=== PATIENT | male | born 1970 | race African-American/Black ===

== ENCOUNTER 2017-09-28 10:09 | Inpatient (IN) | payer MEDICAID ==
[~2017-09-28] VITALS: Ht 182.9 cm; Wt 94.8 kg
[2017-09-28] MEDS ORDERED: METHYLPREDNISOLONE SOD SUCC 125 MG/2 ML VIAL IV STA (10:16)
[2017-09-28] MEDS ORDERED: IPRATROPIUM/ALBUTEROL 0.5-3(2.5)MG/3ML NEB ONE (10:22)
[2017-09-28] MEDS ORDERED: IPRATROPIUM/ALBUTEROL 0.5-3(2.5)MG/3ML NEB HHN ONE (10:30)
[2017-09-28] MEDS ORDERED: MAGNESIUM 2 G PREMIX 50 ML IV ONE (10:30)
[2017-09-28] MEDS ORDERED: LEVOFLOXACIN 750MG PREMIX 150 ML IV ONE (10:30)
[2017-09-28 10:41] LABS: HEMATOCRIT. 40.9 % (42.0-52.0); HEMOGLOBIN. 12.9 g/dL (14.0-18.0); MEAN CORPUSCULAR HEMOGLOBIN 23.4 pg (28.0-32.0); MEAN CORPUSCULAR VOLUME 74.2 fL (80.0-94.0); MEAN PLATELET VOLUME 10.4 fl (7.4-10.4); PLATELET 104 x1000/uL (130-400); RED BLOOD CELL COUNT 5.52 mill/uL (4.7-6.1); RED CELL DISTRIBUTION WIDTH 17.2 % (11.6-14.6)
[2017-09-28 10:53] LABS: CLARITY URINE CLEAR (CLEAR); COLOR URINE YELLOW (YELLOW); KETONES URINE NEGATIVE (NEGATIVE); LEUKOCYTE ESTERASE URINE NEGATIVE (NEGATIVE); NITRITE URINE NEGATIVE (NEGATIVE); OCCULT BLOOD URINE NEGATIVE (NEGATIVE); PH URINE 5.5 (4.5-8.0); PROTEIN URINE 3+ (NEGATIVE); SPECIFIC GRAVITY URINE 1.015 (1.005-1.030); UROBILINOGEN URINE 0.2 E.U./dL (0.2-1.0)
[2017-09-28 10:59] LABS: CARBON DIOXIDE 23 mEq/L (21-32); CHLORIDE 110 mEq/L (98-107); CREATINE KINASE 70 IU/L (39-308); TROPONIN I 0.09 ng/mL (0.00-0.04)
[2017-09-28 11:03] LABS: D-DIMER 1.55 mg/L FEU (<0.50); PARTIAL THROMBOPLASTIN TIME 27.6 sec (23.4-31.0); PROTHROMBIN TIME 10.7 sec (9.4-11.6)
[2017-09-28 11:06] LABS: BG BASE EXCESS -4.8 mmol/L (-2.0-2.0); BG BILEVEL POS AIRWAY PRESSURE 15/5; BG CARBOXYHEMOGLOBIN 0.9 % (0.5-1.5); BG DEOXYHEMOGLOBIN 0.7 % (0.0-5.0); BG FRACTION INSPIRED OXYGEN 50; BG HCO3 ACT 21.3 mmol/L (22.0-26.0); BG METHEMOGLOBIN 0.1 % (0.0-1.5); BG OXYGEN SATURATION 99.3 % (92.0-98.5); BG OXYHEMOGLOBIN 98.3 % (94.0-97.0); BG PCO2 43.1 mmHg (35.0-45.0); BG PH 7.312 (7.350-7.450); BG PO2 216.3 mmHg (75.0-100.0); BG SAMPLE SITE RIGHT RADIAL; BG TOTAL HEMOGLOBIN 13.7 g/dL (12.0-18.0); BG VENT MODE MASK - BIPAP; BG VENT RATE 20 set
[2017-09-28 11:19] LABS: PLATELET ESTIMATE SLIGHTLY DECREASED
[2017-09-28 11:33] LABS: *AMPHETAMINES SCREEN URINE NEGATIVE (NEGATIVE); *BARBITURATES SCREEN URINE NEGATIVE (NEGATIVE); *BENZODIAZEPINES SCREEN URINE NEGATIVE (NEGATIVE); *COCAINE SCREEN URINE PRESUMTIVE POSITIVE (NEGATIVE); CANNABINOID URINE SCREEN NEGATIVE (NEGATIVE); METHADONE URINE SCREEN NEGATIVE (NEGATIVE); OPIATES URINE SCREEN NEGATIVE (NEGATIVE); PHENCYCLIDINE URINE SCREEN NEGATIVE (NEGATIVE)
[2017-09-28] MEDS ORDERED: NITROGLYCERIN 0.4MG TABLET SL SL PRN (12:00)
[2017-09-28] MEDS ORDERED: DIPHENHYDRAMINE 50MG/ML VIAL IV PRN (12:00)
[2017-09-28] MEDS ORDERED: IPRATROPIUM/ALBUTEROL 0.5-3(2.5)MG/3ML NEB INH PRN (12:00)
[2017-09-28] MEDS ORDERED: ACETAMINOPHEN 325MG TABLET PO PRN (12:00)
[2017-09-28] MEDS ORDERED: GUAIFENESIN 200MG/10ML SUGAR FREE UDC PO PRN (12:00)
[2017-09-28] MEDS ORDERED: ONDANSETRON HCL 4MG/2ML VIAL IV PRN (12:00)
[2017-09-28] MEDS ORDERED: LORAZEPAM 0.5MG TABLET PO PRN (12:00)
[2017-09-28] MEDS ORDERED: MAGNESIUM/ALUMINUM HYDROXIDE/SIMETHICONE 30ML UDC PO PRN (12:00)
[2017-09-28] MEDS ORDERED: IPRATROPIUM/ALBUTEROL 0.5-3(2.5)MG/3ML NEB HHN PRN (13:00)
[2017-09-28] MEDS: CLONIDINE 0.1MG TABLET PO PRN ×2 (15:09→21:08)
[2017-09-28 16:02] LABS: CREATINE KINASE MB FRACTION 5.9 ng/mL (0.5-3.6); TROPONIN I 0.11 ng/mL (0.00-0.04)
[2017-09-28 20:05] VITALS: BP 198/112
[2017-09-28 20:42] VITALS: BP 197/148
[2017-09-28] MEDS ORDERED: ZOLPIDEM TARTRATE 5MG TABLET PO PRN (21:00)
[2017-09-28] MEDS ORDERED: FAMOTIDINE 20MG/2ML VIAL IV SCH (21:00)
[2017-09-28] MEDS: DOCUSATE SODIUM 100MG CAPSULE PO PRN (21:08)
[2017-09-28 22:00] VITALS: BP 183/111
[2017-09-28] MEDS: GUAIFENESIN/DM 600MG/30MG ER TAB 12HR PO SCH (22:57)
[2017-09-28] MEDS: ENOXAPARIN 40MG/0.4ML SYR SUBCUT SCH (22:58)
[2017-09-28] MEDS: FAMOTIDINE 20MG/2ML VIAL IV SCH (22:58)
[2017-09-28] MEDS: METHYLPREDNISOLONE SOD SUCC 125 MG/2 ML VIAL IV SCH (22:59)
[2017-09-28 23:00] VITALS: BP 183/95
[2017-09-28] MEDS: CEFTRIAXONE 1,000 MG in DEXTROSE 5% WATER 50 ML IV SCH (23:20)
[2017-09-28] MEDS: HYDRALAZINE HCL 50MG TABLET PO SCH (23:22)
[2017-09-29] VITALS (13 sets, daily range): BP systolic 103–182; BP diastolic 43–115
[2017-09-29 00:28] LABS: CREATINE KINASE MB FRACTION 4.4 ng/mL (0.5-3.6); TROPONIN I 0.05 ng/mL (0.00-0.04)
[2017-09-29] MEDS: DOXAZOSIN MESYLATE 2MG TABLET PO SCH ×2 (00:47→22:52)
[2017-09-29] MEDS: CLONIDINE 0.2MG TABLET PO PRN ×2 (02:11→08:17)
[2017-09-29] MEDS: TRAMADOL 50MG TABLET PO PRN (02:12)
[2017-09-29] MEDS: IPRATROPIUM/ALBUTEROL 0.5-3(2.5)MG/3ML NEB HHN SCH ×5 (04:49→20:01)
[2017-09-29] MEDS: METHYLPREDNISOLONE SOD SUCC 125 MG/2 ML VIAL IV SCH (05:36)
[2017-09-29] MEDS: HYDRALAZINE HCL 50MG TABLET PO SCH ×3 (05:42→22:54)
[2017-09-29 07:17] LABS: BG BASE EXCESS -3.7 mmol/L (-2.0-2.0); BG CARBOXYHEMOGLOBIN 0.4 % (0.5-1.5); BG DEOXYHEMOGLOBIN 7.9 % (0.0-5.0); BG HCO3 ACT 20.2 mmol/L (22.0-26.0); BG METHEMOGLOBIN 0.2 % (0.0-1.5); BG OXYGEN SATURATION 92.1 % (92.0-98.5); BG OXYHEMOGLOBIN 91.5 % (94.0-97.0); BG PCO2 32.9 mmHg (35.0-45.0); BG PH 7.406 (7.350-7.450); BG PO2 63.2 mmHg (75.0-100.0); BG SAMPLE SITE RIGHT RADIAL; BG TOTAL HEMOGLOBIN 11.4 g/dL (12.0-18.0); BG VENT MODE ROOM AIR
[2017-09-29] MEDS ORDERED: ASPI-1159 PO (08:05)
[2017-09-29] MEDS ORDERED: BISA-81 PO (08:05)
[2017-09-29] MEDS ORDERED: HYDR100T26 PO (08:05)
[2017-09-29] MEDS: AMLODIPINE 10MG TABLET PO SCH ×2 (08:09→08:19)
[2017-09-29] MEDS: GUAIFENESIN/DM 600MG/30MG ER TAB 12HR PO SCH ×2 (08:10→22:52)
[2017-09-29] MEDS: ASPIRIN 325MG EC TABLET PO SCH (08:10)
[2017-09-29] MEDS ORDERED: ALTEPLASE 2MG/VIAL ITC SCH (09:00)
[2017-09-29] MEDS: BUDESONIDE 0.5MG/2ML NEB HHN SCH ×2 (09:26→20:00)
[2017-09-29] MEDS: METHYLPREDNISOLONE SOD SUCC 40 MG/ML VIAL IV SCH ×2 (14:12→23:01)
[2017-09-29 15:56] LABS: HEPATITIS B SURFACE ANTIGEN NEGATIVE
[2017-09-29 16:23] LABS: HEPATITIS B CORE AB IGM NEGATIVE
[2017-09-29 16:25] LABS: HEPATITIS A AB IGM NEGATIVE (NEGATIVE)
[2017-09-29] MEDS: ENOXAPARIN 40MG/0.4ML SYR SUBCUT SCH (22:53)
[2017-09-29] MEDS: FAMOTIDINE 20MG/2ML VIAL IV SCH (23:01)
[2017-09-30] VITALS (12 sets, daily range): BP systolic 130–179; BP diastolic 59–125
[2017-09-30] MEDS: CEFTRIAXONE 1,000 MG in DEXTROSE 5% WATER 50 ML IV SCH (00:01)
[2017-09-30] MEDS: IPRATROPIUM/ALBUTEROL 0.5-3(2.5)MG/3ML NEB HHN SCH ×6 (00:29→20:55)
[2017-09-30] MEDS: METHYLPREDNISOLONE SOD SUCC 40 MG/ML VIAL IV SCH ×3 (05:17→21:31)
[2017-09-30] MEDS: HYDRALAZINE HCL 50MG TABLET PO SCH ×3 (05:18→21:31)
[2017-09-30] MEDS: TRAMADOL 50MG TABLET PO PRN (06:43)
[2017-09-30 07:30] LABS: HEMOGLOBIN. 10.9 g/dL (14.0-18.0); MEAN CORPUSCULAR HEMOGLOBIN 22.9 pg (28.0-32.0); MEAN CORPUSCULAR VOLUME 73.5 fL (80.0-94.0); MEAN PLATELET VOLUME 11.5 fl (7.4-10.4); PLATELET 95 x1000/uL (130-400); RED BLOOD CELL COUNT 4.76 mill/uL (4.7-6.1)
[2017-09-30] MEDS: FUROSEMIDE 40MG TABLET PO SCH (08:44)
[2017-09-30] MEDS: GUAIFENESIN/DM 600MG/30MG ER TAB 12HR PO SCH ×2 (08:44→21:31)
[2017-09-30] MEDS: ASPIRIN 325MG EC TABLET PO SCH (08:44)
[2017-09-30] MEDS: AMLODIPINE 10MG TABLET PO SCH (08:46)
[2017-09-30] MEDS: CLONIDINE 0.2MG TABLET PO PRN ×2 (08:48→19:05)
[2017-09-30] MEDS: BUDESONIDE 0.5MG/2ML NEB HHN SCH ×2 (08:57→20:55)
[2017-09-30 09:35] LABS: PLATELET ESTIMATE DECREASED
[2017-09-30] MEDS ORDERED: INFLUENZA VIRUS VACCINE 0.5ML SYR IM ONE (10:00)
[2017-09-30] MEDS ORDERED: LEVOFLOXACIN 750MG PREMIX 150 ML IV SCH (11:00)
[2017-09-30] MEDS: FAMOTIDINE 20MG/2ML VIAL IV SCH (21:31)
[2017-09-30] MEDS: DOXAZOSIN MESYLATE 2MG TABLET PO SCH (21:32)
[2017-09-30] MEDS: ENOXAPARIN 40MG/0.4ML SYR SUBCUT SCH (21:32)
[2017-10-01] VITALS (12 sets, daily range): BP systolic 138–202; BP diastolic 69–124
[2017-10-01] MEDS: IPRATROPIUM/ALBUTEROL 0.5-3(2.5)MG/3ML NEB HHN SCH ×6 (00:49→20:53)
[2017-10-01] MEDS: CEFTRIAXONE 1 G PREMIX 50 ML IV SCH (02:12)
[2017-10-01] MEDS: METHYLPREDNISOLONE SOD SUCC 40 MG/ML VIAL IV SCH (06:58)
[2017-10-01] MEDS: HYDRALAZINE HCL 50MG TABLET PO SCH ×2 (06:58→14:26)
[2017-10-01 07:34] LABS: HEMATOCRIT. 34.2 % (42.0-52.0); MEAN CORPUSCULAR HEMOGLOBIN 23.5 pg (28.0-32.0); MEAN CORPUSCULAR VOLUME 73.1 fL (80.0-94.0); MEAN PLATELET VOLUME 12.1 fl (7.4-10.4); PLATELET 88 x1000/uL (130-400); RED BLOOD CELL COUNT 4.69 mill/uL (4.7-6.1); RED CELL DISTRIBUTION WIDTH 16.5 % (11.6-14.6)
[2017-10-01] MEDS: AMLODIPINE 10MG TABLET PO SCH (08:09)
[2017-10-01] MEDS: GUAIFENESIN/DM 600MG/30MG ER TAB 12HR PO SCH ×2 (08:10→20:03)
[2017-10-01] MEDS: ASPIRIN 325MG EC TABLET PO SCH (08:11)
[2017-10-01] MEDS: FUROSEMIDE 40MG TABLET PO SCH (08:11)
[2017-10-01] MEDS: CLONIDINE 0.2MG TABLET PO PRN ×3 (08:16→23:10)
[2017-10-01] MEDS: DOCUSATE SODIUM 100MG CAPSULE PO PRN ×2 (08:17→23:10)
[2017-10-01 09:02] LABS: PLATELET ESTIMATE DECREASED
[2017-10-01] MEDS: BUDESONIDE 0.5MG/2ML NEB HHN SCH ×2 (09:23→20:53)
[2017-10-01] MEDS ORDERED: HYDROCODONE/ACETAMINOPHEN 5/325MG TABLET PO PRN (10:45)
[2017-10-01] MEDS: DOXAZOSIN MESYLATE 2MG TABLET PO SCH (20:03)
[2017-10-01] MEDS: ENOXAPARIN 40MG/0.4ML SYR SUBCUT SCH (20:04)
[2017-10-01] MEDS: HYDRALAZINE HCL 100MG TABLET PO SCH (21:06)
[2017-10-01] MEDS: FAMOTIDINE 20MG/2ML VIAL IV SCH (21:06)
[2017-10-02] VITALS (8 sets, daily range): BP systolic 127–160; BP diastolic 65–93
[2017-10-02] MEDS: IPRATROPIUM/ALBUTEROL 0.5-3(2.5)MG/3ML NEB HHN SCH ×5 (00:47→16:01)
[2017-10-02] MEDS: CEFTRIAXONE 1 G PREMIX 50 ML IV SCH (01:16)
[2017-10-02 05:44] LABS: BASOPHILS % 0.1 % (0.0-2.0); EOSINOPHILS % 0.1 % (0.0-5.0); HEMATOCRIT. 35.7 % (42.0-52.0); HEMOGLOBIN. 11.5 g/dL (14.0-18.0); LYMPHOCYTES % 9.4 % (20.0-50.0); MEAN CORPUSCULAR HEMOGLOBIN 23.6 pg (28.0-32.0); MEAN CORPUSCULAR VOLUME 73.4 fL (80.0-94.0); NEUTROPHILS % 81.4 % (40.0-76.0); PLATELET 94 x1000/uL (130-400); RED BLOOD CELL COUNT 4.86 mill/uL (4.7-6.1); RED CELL DISTRIBUTION WIDTH 16.4 % (11.6-14.6)
[2017-10-02] MEDS: HYDRALAZINE HCL 100MG TABLET PO SCH ×2 (06:55→14:48)
[2017-10-02] MEDS: AMLODIPINE 10MG TABLET PO SCH (08:31)
[2017-10-02] MEDS: DOCUSATE SODIUM 100MG CAPSULE PO PRN (08:36)
[2017-10-02] MEDS: ASPIRIN 325MG EC TABLET PO SCH (08:36)
[2017-10-02] MEDS: GUAIFENESIN/DM 600MG/30MG ER TAB 12HR PO SCH (08:36)
[2017-10-02] MEDS: FUROSEMIDE 40MG TABLET PO SCH (08:36)
[2017-10-02] MEDS ORDERED: PREDNISONE 20MG TABLET PO SCH (09:00)
[2017-10-02] MEDS ORDERED: LEVOFLOXACIN 750MG PREMIX 150 ML IV SCH (11:00)
== END 2017-10-02 17:10 | disposition home or self-care (01) | DRG 140 ==
LOC: EDBD 10:33 → ER 10:33 → 3WST 11:25 → EDBEDREQ 11:33 → EDBEDREQTM 11:33 → ENRESERV 18:00
PROVIDERS: ADMIT Internal Medicine; ATTEND Internal Medicine
PROC: 5A09357 Assistance with Respiratory Ventilation, Less than 24 Consecutive Hours, Continuous Positive Airway Pressure (ICD-10-PCS; principal; 2017-09-28)
PROC: 3E1M39Z Irrigation of Peritoneal Cavity using Dialysate, Percutaneous Approach (ICD-10-PCS; 2017-09-29)
DX: J44.1 Chronic obstructive pulmonary disease with (acute) exacerbation (principal); J96.00 Acute respiratory failure, unspecified whether with hypoxia or hypercapnia; J18.9 Pneumonia, unspecified organism; N18.6 End stage renal disease; I13.11 Hypertensive heart and chronic kidney disease without heart failure, with stage 5 chronic kidney disease, or end stage renal disease; D69.6 Thrombocytopenia, unspecified; E44.0 Moderate protein-calorie malnutrition; E87.70 Fluid overload, unspecified; F14.10 Cocaine abuse, uncomplicated; D63.8 Anemia in other chronic diseases classified elsewhere; F17.200 Nicotine dependence, unspecified, uncomplicated; F19.10 Other psychoactive substance abuse, uncomplicated; J44.0 Chronic obstructive pulmonary disease with (acute) lower respiratory infection; Z99.2 Dependence on renal dialysis; Z79.82 Long term (current) use of aspirin; Z91.14 Patient's other noncompliance with medication regimen; Z68.28 Body mass index [BMI] 28.0-28.9, adult; Z88.8 Allergy status to other drugs, medicaments and biological substances
CPT/HCPCS: 36415; 36600; 71045; 80048; 80053; 80061; 80305; 81001; 82375; 82550; 82553; 82805; 82962; 83036; 83605; 83690; 83880; 84484; 85025; 85379; 85610; 85730; 86705; 86709; 86803; 87040; 87070; 87205; 87340; 87804; 89050; 90686; 93005; 93306; 93970; 94640; 94660; 96365; 96366; 96368; 96375; 99291; J0696; J1650; J1956; J2920; J2930; J2997; J3475; J3490; J7050; J7060; J7512; J7620; J7626